=== PATIENT | female | born 1970 | race Caucasian/White ===

== ENCOUNTER 2016-12-18 16:00 | Outpatient (RCR) | payer OTHER ==
--- OUTSIDE RECORDS SUMMARY | 2016-11-11 15:04 | XMS REPORT | Continuity of Care Document ---
Author Author [facility] Organization [facility] Address Unknown Phone Unavailable Support Name Relationship Address Phone AGUILAR MIREYA Maurice APRN Caregiver [facility] [address] [place] [address] JOSESITO RODRIGUEZ MD Caregiver [address] [place], [place] [address] LORETA BARAJAS MD Caregiver [address] [place] [address] [place] [address] Insurance Providers Payer Name Policy Number Subscriber Name Relationship UMR [id number] Miya Cid 18 Self / Same As Patient Advance Directives Directive Response Recorded Date/Time Advance Directives No 02/03/15 10:52pm Health Care Power of Implant Coordinator No 02/03/15 10:52pm Resuscitation Status Full Code 02/03/15 10:52pm Problems Medical Problems Problem Onset Date Status Back pain Unknown Active Medications Medication Dose Route Sig Days/Qty Instructions Order Date Discontinued Date Status Doxycycline Hyclate (Vibramycin) 100 Mg PO TWICE A DAY 05/01/1211/05 Discontinued Potassium Chloride (Micro K) 1 Each PO TWICE A DAY WITH MEALS 7 Days 12/05/12 Discontinued Albuterol 2 Puff IH EVERY 6 HOURS PRN 05/01/12 05/05/12 Discontinued Mometasone/Formoterol 2 Puff IH TWICE A DAY 05/01/12 12/05/12 Discontinued Promethazine HCl/Codeine 0 PO EVERY 6 HOURS PRN 5 - 10 ML 05/01/1211/05 Discontinued Prednisone 10 Mg PO TWICE A DAY 4 Days 05/05/12 12/05/12 Discontinued Prednisone 10 Mg PO DAILY 05/05/12 12/05/12 Discontinued [Ocp] 12/05/12 Active Ibuprofen 800 Mg PO THREE TIMES A DAY 90 Qty 12/05/12 Active Social History Social History Problem Response Recorded Date/Time Alcohol Use Occasionally Uses 02/03/2015 10:52pm Recreational Drug Use No 02/03/2015 10:52pm Recent Foreign Travel No 02/03/2015 10:52pm Recent Infectious Disease Exposure No 02/03/2015 10:52pm Hospitalization with Isolation Denies 02/03/2015 10:52pm Smoking Status Never a Smoker 02/03/2015 10:52pm Query Response Start Date Stop Date Smoking Status Never a Smoker Hospital Discharge Instructions No hospital discharge instructions. Plan of Care No plan of care. Functional Status No functional status results. Allergies, Adverse Reactions, Alerts Allergen Type Severity Reaction Status Last Updated adhesive tape Allergy Active 05/01/12 amoxicillin ([id number]) Allergy Unknown Active 05/01/12 Levofloxacin Allergy Unknown Active 05/01/12 ERYTHROMYCIN Allergy Unknown Active 05/01/12 PENICILLIN Allergy Unknown Active 05/01/12 Immunizations No immunization records. Vital Signs Acute Vital Signs Vital Response Date/Time Temperature (Fahrenheit) 97.6 degrees F (97.6 - 99.5) Temperature (Calculated Celsius) 36.46600 degrees C (36.4 - 37.5) Temperature Source Temporal Pulse Rate (adult) 95 bpm (60 - 90) Respiratory Rate 18 bpm (12 - 24) O2 Sat by Pulse Oximetry 98 % (88 - 100) Blood Pressure 123/111 mm Hg Pain Pain Intensity 7 Height (Feet) 5 feet Height (Inches) 3 inches Height (Calculated Centimeters) 160.751434 cm Weight (Pounds) 200 pounds Weight (Calculated Kilograms) 90.501212 kilograms Calculated BMI 35.42 Results No known relevant diagnostic tests, laboratory data and/or discharge summary. Procedures No known history of procedures. Encounters Encounter Location Date/Time Departed Emergency Room Via [facility] 02/03/15 10:40pm Recent Diagnosis
[~2016-12-18 16:00] MED LIST: ALBU17AE23 IH; DOXY100C2 PO; IBP800T PO; MOME13HF2 IH; OCP; POTA10CA43 PO; PRCD5U PO; PRD10T PO
== END 2016-12-18 16:20 | disposition home or self-care (01) ==
PROVIDERS: ATTEND Orthopaedic Surgery
DX: M75.101 Unspecified rotator cuff tear or rupture of right shoulder, not specified as traumatic (principal)

== ENCOUNTER 2017-02-26 10:47 | Outpatient (RCR) | payer OTHER ==
--- OUTSIDE RECORDS SUMMARY | 2016-12-31 10:59 | XMS REPORT | Continuity of Care Document ---
Author Author [facility] Organization [facility] Address Unknown Phone Unavailable Support Name Relationship Address Phone AGUILAR MIREYA Maurice APRN Caregiver [facility] [address] [place] [address] JOSESITO RODRIGUEZ MD Caregiver [address] [place], [place] [address] LORETA BARAJAS MD Caregiver [address] [place] [address] TARIQDUSTIN [place] [address] Insurance Providers Payer Name Policy Number Subscriber Name Relationship UMR [id number] Miya Cid 18 Self / Same As Patient Advance Directives Directive Response Recorded Date/Time Advance Directives No 02/03/15 10:52pm Health Care Power of French Lecturer No 02/03/15 10:52pm Resuscitation Status Full Code [...] Updated adhesive tape Allergy Active 05/01/12 amoxicillin ([id number]) Allergy Unknown Active 05/01/12 Levofloxacin Allergy Unknown Active 05/01/12 ERYTHROMYCIN Allergy Unknown Active 05/01/12 PENICILLIN Allergy Unknown Active 05/01/12 Immunizations No immunization records. Vital Signs Acute Vital Signs Vital Response Date/Time Temperature (Fahrenheit) 97.6 degrees F (97.6 - 99.5) Temperature (Calculated Celsius) 36.27874 degrees C (36.4 - 37.5) Temperature Source Temporal Pulse Rate (adult) 95 bpm (60 - 90) Respiratory Rate 18 bpm (12 - 24) O2 Sat by Pulse Oximetry 98 % (88 - 100) Blood Pressure 123/111 mm Hg Pain Pain Intensity 7 Height (Feet) 5 feet Height (Inches) 3 inches Height (Calculated Centimeters) 160.806753 cm Weight (Pounds) 200 pounds Weight (Calculated Kilograms) 90.562356 kilograms Calculated BMI 35.42 Results No known relevant diagnostic tests, laboratory data and/or discharge summary. Procedures No known history of procedures. Encounters Encounter Location Date/Time Departed Emergency Room [facility] 02/03/15 10:40pm Recent Diagnosis
--- OUTSIDE RECORDS SUMMARY | 2017-01-20 09:31 | XMS REPORT | Continuity of Care Document ---
Author Author [facility] Organization [facility] Address Unknown Phone Unavailable Support Name Relationship Address Phone AGUILAR MIREYA Maurice APRN Caregiver [facility] [address] [place] [address] JOSESITO RODRIGUEZ MD Caregiver [address] [place], [place] [address] LORETA BARAJAS MD Caregiver [address] [place] [address] [place] [address] Insurance Providers Payer Name Policy Number Subscriber Name Relationship UMR [id number] Miya Cid 18 Self / Same As Patient Advance Directives Directive Response Recorded Date/Time Advance Directives No 02/03/15 10:52pm Health Care Power of Bulb Farmworker No 02/03/15 10:52pm Resuscitation Status Full Code [...] Updated adhesive tape Allergy Active 05/01/12 amoxicillin ([id number]) Allergy Unknown Active 05/01/12 Levofloxacin Allergy Unknown Active 05/01/12 ERYTHROMYCIN Allergy Unknown Active 05/01/12 PENICILLIN Allergy Unknown Active 05/01/12 Immunizations No immunization records. Vital Signs Acute Vital Signs Vital Response Date/Time Temperature (Fahrenheit) 97.6 degrees F (97.6 - 99.5) Temperature (Calculated Celsius) 36.65094 degrees C (36.4 - 37.5) Temperature Source Temporal Pulse Rate (adult) 95 bpm (60 - 90) Respiratory Rate 18 bpm (12 - 24) O2 Sat by Pulse Oximetry 98 % (88 - 100) Blood Pressure 123/111 mm Hg Pain Pain Intensity 7 Height (Feet) 5 feet Height (Inches) 3 inches Height (Calculated Centimeters) 160.900600 cm Weight (Pounds) 200 pounds Weight (Calculated Kilograms) 90.632702 kilograms Calculated BMI 35.42 Results No known relevant diagnostic tests, laboratory data and/or discharge summary. Procedures No known history of procedures. Encounters Encounter Location Date/Time Departed Emergency Room [facility] 02/03/15 10:40pm Recent Diagnosis
== END 2017-03-18 16:38 | disposition home or self-care (01) ==
PROVIDERS: ATTEND Orthopaedic Surgery
DX: Z47.89 Encounter for other orthopedic aftercare (principal); M25.511 Pain in right shoulder

== ENCOUNTER → 2020-08-11 | Outpatient (CLI) | payer BC ==
--- NOTE | 2020-08-11 14:25 | Diagnostic Imaging Report ---
EXAMINATION: Left knee at 12:26 p.m. INDICATION: Knee pain. FINDINGS: Three views were obtained. There are no prior studies available for comparison. There is no fracture, dislocation, or acute bony abnormality evident. The medial and lateral compartments are fairly well maintained, but there is at least moderate narrowing of the patellofemoral space. The soft tissues are unremarkable. IMPRESSION: There is no evidence for an acute bony abnormality. Dictated by: Dictated on workstation # [id number]
== END ==
LOC: RAD 12:12
DX: M25.562 Pain in left knee (principal)
CPT/HCPCS: 73562